=== PATIENT | female | born 1945 | race Caucasian/White ===

== ENCOUNTER 2018-05-30 03:10 | Inpatient (IN) | payer OTHER ==
[~2018-05-30] VITALS: Ht 162 cm; Wt 79.0 kg
[~2018-05-30 03:10] MED LIST: ASPIRIN EC81 M1 PO; BENAZEPRIL HCL20 MG PO; CALCIUM + VITA1 EAC1 PO; CELEBREX100 M1 PO; COLACE100 M1 PO; LEVO-T75 MCG PO; LIPITOR20 M2 PO; MULTIVITAMINS1 EAC9 PO; PAXIL20 M1 PO; SYSTANE 0.3-0.415 ML OU
--- NOTE | 2018-05-30 07:13 | Operative Report ---
Operative/Inv Procedure Report Surgery Date: 05/30/18 Name of Procedure: 1. L3, L4, L5 pars osteotomy for deformity correction 2. Total L3, L4, L5, partial S1 laminectomy 3. L3 4, L4 5, L5-S1 laminotomy, total facetectomies, foraminotomies, far lateral discectomies 4. L3 4, L4 5, L5-S1 transforaminal lumbar interbody fusion with Bruno tritanium interbody cage, autograft 5. Segmental posterior lateral lumbar arthrodesis L3 4, L4 5, L5-S1 with [place] Jaime pedicle screws and rods, autograft, iliac crest bone marrow aspirate 6. Right Iliac crest bone marrow aspirate 7. O arm neuro navigation Pre-Operative Diagnosis: L3/4, L4/5, L5/S1 spondylolisthesis, stenosis, scoliosis Post-Operative Diagnosis: same Estimated Blood Loss: 1350cc Surgeon/Heavy Duty Press Operator: Red HARRIS,Peyman Roger MD Anesthesia: general endotracheal tube Monitors: neurophysiologic monitoring IV Fluids: 3000cc replaced with crystalloid, 660cc cell saver, 500cc colloid Implants: Bruno tritanium interbody cages, jaime pedicle screws and rods Urine Output: 960cc via handy Drains: med HV Specimens: L3/4, L4/5, L5/S1 disc material Complications: none Condition: stable Operative Indication: 73 yo with intractable lumbar claudication despite comprehensive conservative tx with multilevel lumbar DDD, spondylolisthesis and high grade spinal stenosis from L3 to the sacrum who now presents for operative decompression and instrumented stabilization. Operative/Procedure Note Note: Patient was taken the operating room. After appropriate patient identification, neurophysiologic monitoring leads were placed and baseline recordings were obtained. The patient then underwent the smooth induction of general endotracheal anesthesia without incident. Following intubation monitoring was stable. A Handy catheter was sterilely inserted. DVT prophylaxis was utilized throughout the case. Patient was given 2 g of IV Kefzol Preoperative Prophylaxis and it was redosed at 4 hours. With All Tubes and Lines Secured, the Patient Was Carefully Turned to the Prone Position on the Fazal Frame Taking Care to Ensure That All Pressure Points Were Well-Padded. Monitoring Was Stable Following the Turn.The Low Back Was Widely Prepped and Draped Usual Sterile Fashion Using [place] Iodine Solution. A Vertical Midline Skin Incision Was Marked from approx L3 to the sacrum and Infiltrated with 10 ML of Local Anesthetic. Skin incision was made with a 10 blade knife. Dissection was carried down through subcutaneous tissue with the Bovie to the lumbodorsal fascia. The fascia was incised and a subperiosteal dissection of the lumbar paravertebral muscles was performed exposing the underlying spinous processes lamina and facets from L3 to S1 bilaterally and self-retaining retractors were placed beneath the muscle. A [place] 4 elevator was placed under the presumed L5 lamina and vernon on the L3 pars and an intraoperative lateral lumbar x-rays was obtained to confirm the correct level. With the correct level verified, we then proceeded to expose the transverse processes from L3 to L5 as well as the sacral alar bilaterally and they were decorticated with a high-speed drill. We then focused our attention to the decompression. The facet joints were noted to be markedly hypertrophic. A total laminectomy from L3 to S1 was completed using a combination of the bone scalpel, small straight and angled curettes and Kerrison rongeurs. Thickened ligamentum flavum was gently elevated and resected allowing excellent decompression of the thecal sac. Bilateral pars osteotomies were then performed at L3, L4, and L5 using combination the bone scalpel and a Kerrison rongeurs and total facetectomies were completed. All bone was saved and passed to the back table for subsequent arthrodesis. Pedicles were skeletonized at L3, L4, L5, and S1 bilaterally and the exiting and traversing roots were widely decompressed on both sides. We then focused our attention to the discectomies. Using a far lateral approach , discectomies were completed at L4 5 from the patient's left side and from the right at L3 4. The disc at L5/S1 was severely collapsed and so we deferred the interbody work until the screws were in position in order to distract the disc space and facilitate the interbody arthordesis at this level. The dural sac was gently mobilized to the midline, the underlying disc annulus was coagulated with a bipolar and incised in a rectangular fashion with an 11 blade knife and discectomies were completed with small straight and angled curettes pituitary rongeurs disc space rodney and rasps until all the cartilaginous endplates were removed at bothlevels. 10 mL of right iliac crest bone marrow aspirate was then taken via a Jamshidi needle through a separate stab incision at the right iliac crest and added to the morcellated autograft. We next focused our attention to the interbody arthrodesis. Beginning at L4 5, a 9 x 28 x 6 mm tritanium cage was also selected after appropriate trials and packed with morcellated autograft. Morcellated autograft was packed into the anterior disc space and the L4 5 cage was packed with autograft and then gently tamped into the interspace under direct visualization and countersunk by several millimeters and its position also confirmed and noted to be excellent. At L3 4, a 9 x 28 x 6 mm titanium cage was selected and packed with morcellated autograft. autograft were carefully packed into the anterior aspect of the L3 4 disc space followed by the cage was gently tamped into the interspace and countersunk by 2 mm and its final position confirmed and noted to be excellent. With cages in position, we then proceeded to the posterior lateral arthrodesis. The O arm reference arc was then fixed to the right iliac crest and an AP and lateral x-rays were obtained with the O arm followed by a spin. Reconstructions were completed and confirmed. We then used live navigation to place all of the posterolateral hardware. Prior to placing the pedicle screw instrumentation, all residual bone graft was moistened with iliac crest bone marrow aspirate was packed over the transverse processes from L3 to the sacral alar bilaterally. Entry points for [place] Jaime pedicle screws were selected using the O arm at the junction of the pars interarticularis transverse process and inferomedial aspect of the rostral facet. All screws were placed by piercing the bone with the drill, traversing the pedicle with a gearshift under the hole with a ball- tipped probe, and screw placed with power. We began at L3. 5.5 x 50 mm screw was placed bilaterally. At L4, 5.5 x 45 mm screws were placed bilaterally, at L5, 6.5 x 45 mm screws bilaterally, at S1, 6.5 x 40 mm screws placed bilaterally. With all screws were in position, they were stimulated with thresholds greater than 30 mA at all locations. With the screws in place, we then top loaded a 80mm hyperlordotic que on the right and gently distracted across the L5/S1 interspace. We then completed a thorough discectomy with disc space rodney and rasps to prepare the interspace and placed autograft in the anterior disc space followed by a 8 X 28 x 6 cage which was filled with autograft and tamped into the interspace and countersunk. With all the instrumentation in position, we then obtained a second spin of the O arm and completed the reconstructions to ensure good hardware positioning. All cages and screws were in excellent position. We top loaded a second 80 mm titanium rods and locking caps were placed. Screws were then finally tightened using antitorque device. Was copiously irrigated with bacitracin and sterile saline irrigation. Epidural bleeding was controlled using FloSeal, Surgifoam and cottonoid patties and points of muscle bleeding were controlled with the bipolar electrocautery. A medium GERMAIN drain was placed into the wound and secured to the skin with a 2-0 nylon suture. 1 g of vancomycin powder was gently used to cover the cut muscle and soft tissue surfaces in the wound and we then began closure. 10 mL of long- acting local anesthetic was placed in the paraspinal muscle. Deep muscle was reapproximated with interrupted 0 Vicryl suture. Subcutaneous tissue was closed in layers with interrupted oh and 2-0 Vicryl suture. The skin was closed with ivy. The wounds were cleaned and dried. Bacitracin and sterile occlusive dressings were placed. The reference arc was removed from the right iliac crest. That wound was irrigated, closed in layers in the subcutaneous tissue with Vicryl suture and ivy in the skin. It was cleaned and dried and a sterile occlusive dressing was placed. At the completion of the case, all sponge needle and injuring counts were correct at the completion of the procedure 3. Neurophysiologic monitoring was stable throughout the case. Patient was returned to the supine position, awakened extubated and taken to PACU in stable condition. He was noted to be moving all four extremities. Discharge Disposition: PACU
--- NOTE | 2018-05-30 13:53 | RADIOLOGY REPORT ---
EXAMINATION: XR LUMBAR SPINE CLINICAL INFORMATION: L3-L4, L4-L5, L5-S1 TLIF. COMPARISON: Lumbar spine films dated 02/17/2018. TECHNIQUE: Single lateral view of the lumbar spine. FINDINGS: A surgical marker is seen projected over the posterior elements of the L5 vertebral body and the L3 vertebral body. Severe degenerative disc disease and facet arthropathy is seen at L4-L5 and L5-S1, similar to prior exam. IMPRESSION: Surgical localization of the posterior elements of the L3 and L5 vertebral bodies.
--- NOTE | 2018-05-30 14:05 | Operative Report ---
Operative/Inv Procedure Report Surgery Date: 05/30/18 Name of Procedure: L5 3 91965 transforaminal lumbar interbody fusion using [place] titanium intervertebral biomechanical device using [place] Sirota pedicle screws L3 4 and 5 and S1 posterior lateral fusion L3 4 5 1 posterior lateral segmental instrumentation L3 L4 L5 posterior osteotomies for spinal listhesis correction bilateral facetectomies bilateral neural decompression of L3-L4 L5-S1 nerve roots through [place] laminectomies Use of autograft use of Stealth navigation Pre-Operative Diagnosis: Spondylolisthesis lateral recess stenosis herniated nucleus pulposus Central stenosis Coronal and sagittal plane deformity Post-Operative Diagnosis: Same Estimated Blood Loss: 1350 Surgeon/Laundry Presser: Peyman Moon MD,Desiree Lyle Anesthesia: general endotracheal tube Operative/Procedure Note Note: After the successful administration of general endotracheal anesthesia all lines tubes and monitors were placed by anesthesia team the patient positioned prone on the Fazal table pressure points padded we palpated the spinous process of L3 through S1 patient was prepped and draped in usual standard fashion 10 mL of lidocaine with epinephrine was infiltrated in subcutaneous tissues were 10 was used to incise the skin this was taken down with Bovie cautery to thoracolumbar fascia which was divided and a subperiosteal dissection was carried out exposing spinous process lamina of L3 4 5 and S1 care was taken not to denude to 3 joint space we took x-rays to confirm the levels after levels confirmed we denuded the joints at 5145 and 3 for the transverse processes of L3 4 5 and L5-S1 were identified. After retractors were inserted, we used was bone coated with spinous processes of L3 4 5 and S1 the bone taken to back table morselized we then used the bone scalpel to make posterior osteotomies at L3-L4 and L5 removing the posterior elements of these bodies with the midline structures was taken for morselized autograft we then made cuts with the bone scalpel in the superior facets of L4-L5 and S1 putting wide axis and bilateral posterior osteotomies decompressing the lateral recesses exposing the L3-L4 L5-S1 nerve roots in their entirety. Through satisfied with the neural decompression we retracted thecal sac medially and placed The interbody's at L3 4 45, 34 from the right-hand side fand 4/5 from the left-hand side L3 4 side we cut the bulging disc was sent off for specimen we into the disc space the #11 blade performed a total discectomy accommodation of pituitaries rodney Webb curettes and rongeurs replaced 9 x 26x6 lordotic 11 wide spacers at both the 3/4 and4/5 levels. Motors and sensors were stable. We then turned attention to the 51 disc space and left-hand side the disc was very collapsed and could not interact a straight leg we then decided to proceed with this interbody fixation after we placed a pedicle screws providing distraction there were placed the case pinned in the right iliac crest, and obtained an O arm spin. On the [employer] [employer] workstation with plantar screw to points and trajectories. We used a high-speed drill and the navigated lanky probe and navigated taps [address] our screw entry points. At L3 placed 55 by 50s at L4 was 5 5 x 45, L5-6 5 x 45 and S1 placed 6.5 by 40s all screws stimulated above threshold. We then provided in-line distraction on the right-hand side across the 51we entered the 5 onthe left-hand side and placed a 8 x 28 x 6 spacer. We then put arm in for confirmatory spin all hardware in excellent position we backed out the left S1 screw to make sure was adequately bicortical we then placed to precontoured a millimeter hyperlordotic rods secured in place with set screws and tightened with torque limiting tractor driver teamster. We then irrigated with bacitracin irrigation obtained hemostasis space the neural elements patient is no further compression the transverse process were decorticated and packed with morselized autograft. There separate stab incision placed a Hemovac the wound was then dusted with vancomycin powder and closed in layers using 0 device the muscle and fascia 2-0 Vicryl for the dermis and skin was closed ivy dry sterile dressing was applied the purchase pins removed irrigated and closed in layers using 2-0 Vicryl and ivy. All needle counts sponge instrument correct the patient to recovery in stable condition.
--- NOTE | 2018-05-30 14:47 | RADIOLOGY REPORT ---
EXAMINATION: CR LUMBOSACRAL SPINE/INTRAOPERATIVE FLUOROSCOPY CLINICAL INDICATION: L3-L4, L4-L5, L5-S1 TLIF. COMPARISON: Lumbar spine films from earlier today. TECHNIQUE/FINDINGS: Fluoroscopic o - arm equipment was dedicated to the operating room for the performance of an intraoperative procedure. 2 spins were acquired and are archived in PACS. Please refer to operative notes for procedural detail. FLUOROSCOPY TIME: 7.69 seconds. IMPRESSION: Administrative dictation for intraoperative fluoroscopy and image archiving in PACS. Please refer to operative notes for details.
[2018-05-30 16:00] VITALS: BP 102/60
--- NOTE | 2018-05-30 16:01 | PN- Neurosurgical ---
Subjective Subjective: Postop check: Patient sleeping but arousable. Moderate back pain. Some relief from the Dilaudid EXECUTIVE ADMIN. No neurologic symptoms of the lower extremities. No other complaints. Objective Vital Signs and I&Os Intake & Output 05/30 1600 05/30 0805/30 0000 05/29 1600 05/29 0805/29 0000 Intake Total Output Total Balance Patient 176 lb Weight Vital signs stable, afebrile, heart rate 88, blood pressure 100/65 Physical Exam: Well-developed well-nourished no apparent distress. Sleepy but arousable HEENT: Atraumatic, extraocular motion intact Neck: Supple, no lymphadenopathy Respiratory: No respiratory distress Back: Dressing clean dry and intact, Hemovac drain in place, scant amount of bright red blood noted, 135 cc was drained out by the nursing staff while in the recovery room bilateral lower extremities are neurovascularly intact with sensation and motor grossly intact, No noted deficits Extremities: No edema, no calf pain Neuro: Alert and oriented x3 Psych: Mood affect normal, normal memory normal judgment. Skin: Warm and dry, no rash on exposed skin Assessment/Plan Assessment/Plan POD #0 sp L3 4, L4 5, L5-S1 transforaminal lumbar interbody fusion secondary to L3/4, L4/5, L5/S1 spondylolisthesis, stenosis, scoliosis Dilaudid EXECUTIVE ADMIN Continue Hemovac drain to self suction. Antibiotics until the drain is out, Ancef IV every 8 hours Out of bed with assistance, back brace on when out of bed. Continue Silva IV fluids Neurochecks As needed antiemetics. As needed Toradol Regular home meds Heparin for DVT prophylaxis A LPS for DVT prophylaxis Core Measures Venous Thromboembolism VTE Risk Factors Surgery No Mechanical VTE Prophylaxis d/t N/A MechProphylax Ordered No VTE Pharm Prophylaxis d/t NA PharmProphylax ordered
[2018-05-30 18:00] VITALS: BP 90/60
[2018-05-30 20:30] VITALS: BP 98/58
[2018-05-30 20:34] VITALS: BP 98/58
[2018-05-30 22:00] VITALS: BP 102/68
[2018-05-30 22:13] VITALS: BP 102/68
[2018-05-31] VITALS (10 sets, daily range): BP systolic 96–118; BP diastolic 28–68
[2018-05-31 07:39] LABS: ABSOLUTE BASOPHIL COUNT 0 /CUMM (0.0-0.2); ABSOLUTE EOSINOPHIL COUNT 0.2 /CUMM (0.0-0.7); ABSOLUTE GRANULOCYTE CT 7.8 /CUMM (1.4-6.5); ABSOLUTE LYMPH COUNT 0.7 /CUMM (1.2-3.4); ABSOLUTE MONOCYTE COUNT 0.6 /CUMM (0.10-0.60); BASOPHIL % 0.3 % (0.0-2.0); EOSINOPHIL % 1.7 % (0-5); GRANULOCYTE % 83.6 % (42.2-75.2); HEMATOCRIT 29.6 % (37-47); MEAN CORPUSCULAR HGB 29.4 PG (27.0-31.0); MEAN CORPUSCULAR HGB CONC 32.9 G/DL (33.0-37.0); MEAN CORPUSCULAR VOLUME 89.2 FL (81.0-99.0); PLATELET COUNT 177 /CUMM (130-400); RBC DISTRIBUTION WIDTH 13.9 % (11.5-14.5); RED BLOOD CELL CT 3.32 /CUMM (4.20-5.40); WHITE BLOOD CELL COUNT 9.3 /CUMM (4.8-10.8)
--- NOTE | 2018-05-31 08:51 | PN- Neurosurgical ---
Subjective Subjective: Pt doing well. A bit groggy from PLATE EMBOSSER this am. Objective Vital Signs and I&Os Vital Signs Date Time Temp Pulse Resp B/P B/P Pulse O2 O2 Flow FiO2 Mean Ox Delivery Rate 05/31 0634 98.4 83 20 96/50 96 Nasal 2.0L Cannula / 0600 98.4 83 20 96/50 / 0415 98.5 78 18 100/60 96 Nasal 2.0L Cannula 05/31 0400 98.5 78 18 100/60 / 0221 98.6 85 18 110/60 96 Nasal 2.0L Cannula 05/31 0200 98.6 85 18 110/60 07/ 0000 Nasal 1.0L Cannula / 0000 98.1 78 18 110/28 07/ 0000 98.1 78 18 110/58 94 Nasal 1.0L Cannula 05/30 2213 98.3 79 20 102/68 96 Nasal 1.0L Cannula 05/30 2200 98.3 79 20 102/68 / 2117 Nasal 2.0L Cannula 05/30 2034 97.6 75 20 98/58 97 Nasal 3.0L Cannula / 2030 97.6 75 20 98/58 07/03 1800 98.0 80 16 90/60 07/03 1800 98.0 80 16 90/60 95 Nasal 3.0L Cannula / 1600 98.0 78 15 102/60 07/03 1600 93 Nasal 3.0L Cannula / 1600 98.0 78 15 102/60 93 Nasal 3.0L Cannula Intake & Output 05/31 1600 / 0800 / 0000 03 1600 05/30 0800 05/30 0000 Intake Total 1000 1360 4150 Output Total 596 222 4289 Balance 113 373 0949 Intake, Blood 650 Product Intake, IV 425 135 0646 Intake, Oral 480 720 Number 0 0 Bowel Movements Output, 150 230 135 Drainage Output, Other 1260 Output, Urine 240 191 9851 Patient 79 kg Weight Weight Reported by Patient Measurement Method Physical Exam: AF, VSS awake and alert, conversive and appropriate eating breakfast neuro exam is normal incision intact, flat pain reasonably controlled handy, PLATE EMBOSSER in place using IS to 2.5L this am HV with 150cc last shift serosanguinous Current Medications: Current Medications Sig/Ren Start time Last Medication Dose Route Stop Time Status Admin Acetaminophen 650 MG Q4P PRN 05/30 1500 AC PO Albumin Human 25 GM .STK-MED ONE 05/30 0930 DC IV 05/30 0931 Bisacodyl 10 MG DAILY NEEDED PRN 05/30 1500 AC CA Cefazolin Sodium 2,000 MG Q8H 05/30 2000 AC 05/31 IV 06/02 0800 0410 Cefazolin Sodium 2,000 MG ONCE 05/30 0000 DC IV 05/30 2359 Diazepam 5 MG Q8P PRN 05/30 1515 AC PO Docusate Sodium 100 MG TID 05/30 2100 AC 05/31 PO 0838 Heparin Sodium 5,000 UNIT Q8 05/31 0600 AC 05/31 (Porcine) SC 0553 Hydromorphone HCl 2 MG Q4-6 PRN PRN 05/31 0800 AC PO Hydromorphone HCl 2 MG .STK-MED ONE 05/30 1439 DC IM 05/30 1440 Hydromorphone HCl 50 MG Q24H PRN 05/30 1430 AC Sodium Chloride 45 ML IV Hydromorphone HCl 2 MG .STK-MED ONE 05/30 1425 DC IM 05/30 1426 Ketorolac 15 MG Q6P PRN 05/30 1500 AC Tromethamine IV 06/04 1500 Ondansetron HCl 4 MG Q6P PRN 05/30 1500 AC IV Oxycodone/ 1 TAB Q4P PRN 05/31 0800 AC Acetaminophen PO Oxycodone/ 2 TAB Q4P PRN 05/31 0800 AC Acetaminophen PO Remifentanil 2 MG .STK-MED ONE 05/30 1208 DC IV 05/30 1209 Senna 374 MG AT BEDTIME NEED.. 05/30 1500 AC PO Sodium Chloride 1,000 ML CONTINOUS INFUSION 05/30 1445 AC 05/31 IV 06/01 0314 0413 Trimethobenzamide HCl 200 MG Q6P PRN 05/30 1500 AC IM Zolpidem Tartrate 2.5 MG AT BEDTIME 05/30 2100 AC 05/30 PO 2246 Results Last 48 Hours of Labs: Laboratory Tests 05/31 0656 Hematology CBC w Diff Pending WBC Pending RBC Pending Hgb Pending Hct Pending MCV Pending MCH Pending MCHC Pending RDW Pending Plt Count Pending MPV Pending Gran % Pending Lymphocytes % Pending Monocytes % Pending Eosinophils % Pending Basophils % Pending Absolute Granulocytes Pending Absolute Lymphocytes Pending Absolute Monocytes Pending Absolute Eosinophils Pending Absolute Basophils Pending Assessment/Plan Assessment/Plan Pt POD1 s/p 3 level TLIF L3-S1 and doing well. Neurologically intact. Plan: -OOB with brace -PT -dc handy, dc PLATE EMBOSSER -toradol 15mg q8 atc, percocet prn, valium prn -use IS -cont HV, abx until output less than 50cc per shift -encourage IS use regularly -DVT prophylaxis Core Measures Venous Thromboembolism VTE Risk Factors Surgery No Mechanical VTE Prophylaxis d/t N/A MechProphylax Ordered No VTE Pharm Prophylaxis d/t NA PharmProphylax ordered Attending MD Review Statement Attending Statement Attending MD Statement: examined this patient, discuss w/resident/PA/COURTESY CLERK, discussed w/nursing
[2018-06-01] VITALS (7 sets, daily range): BP systolic 86–126; BP diastolic 48–70
--- NOTE | 2018-06-01 07:40 | PN- Neurosurgical ---
Subjective Subjective: No acute overnight events reported. Pt states she is not sleeping well, acknowledges pain at surgical site. Denies chest pain, shortness of breath and difficulty breathing. Denies nausea and vomitting. Has been voiding. Objective Vital Signs and I&Os Vital Signs Date Time Temp Pulse Resp B/P B/P Pulse O2 O2 Flow FiO2 Mean Ox Delivery Rate 06/01 0611 98.7 75 16 126/70 94 Nasal 1.0L Cannula 06/01 0000 98.1 68 18 102/48 92 05/31 2243 98.3 67 18 100/56 90 Room Air 05/31 2000 98.0 66 18 108/56 92 Room Air 05/31 1600 96 Nasal 2.0L Cannula 05/31 1340 98.4 79 16 118/68 95 Nasal 2.0L Cannula 05/31 0800 Nasal 2.0L Cannula Intake & Output 06/01 0800 07/ 0000 04 1600 05/31 0800 05/31 0000 05/30 1600 Intake Total 771 16 6104 1000 1360 4150 Output Total 1800 2200 105 294 458 4034 Balance -1290 -2150 1815 620 179 2349 Intake, Blood 650 Product Intake, IV 30 50 320 000 337 7210 Intake, Oral 480 1600 480 720 Number 0 0 0 Bowel Movements Output, 100 100 105 150 230 135 Drainage Output, Other 1260 Output, Urine 1700 2100 709 577 6134 Patient 174 lb Weight Weight Reported by Patient Measurement Method Physical Exam: General: Alert and oriented x3, no acute distress, fatigued Cardiac: RRR. s1s2 Pulm: CTA bilaterally Abd: Soft, non-distended Ext: Neurovascularly intact, bilateral calves soft and non-tender Motor: BLE: 5/5 in plantar and dorsiflexion, no sensory deficits reported Surgical site: Lumbar, dressing dry and intact, no surrounding hematoma or erythema. HV drain holding suction, sanguinous output. 100 cc reported overnight. Assessment/Plan Assessment/Plan This is a 73 year old female, POD 2 s/p L3-S1 fusion. -Continue drain to suction today, continue prophylactic abx while drain in place -Continue atc toradol -Percocet q4-6 prn -IS encouraged, wean o2 to room air -OOB encouraged -continue DVT ppx -Anticipate dc to str when drain removed, will discuss bed placement with case management Will discuss poc with Dr. Moon Core Measures Venous Thromboembolism VTE Risk Factors Surgery No Mechanical VTE Prophylaxis d/t N/A MechProphylax Ordered No VTE Pharm Prophylaxis d/t NA PharmProphylax ordered
--- NOTE | 2018-06-01 18:42 | PN- Neurosurgical ---
Subjective Subjective: Pt doing well. Pain reasonably controlled and able to ambulate around unit with Pt today. Objective Vital Signs and I&Os Vital Signs Date Time Temp Pulse Resp B/P B/P Pulse O2 O2 Flow FiO2 Mean Ox Delivery Rate 06/01 1537 104/60 06/01 1431 86/58 / 1404 97.6 68 18 90/64 94 Room Air 06/01 1145 Nasal 1.0L Cannula 06/01 1142 Nasal 1.0L Cannula 06/01 1009 97.9 69 18 90/64 94 Room Air 06/01 1000 95 Room Air 06/01 0852 Nasal 1.0L Cannula 06/01 0800 94 Nasal 1.0L Cannula 06/01 0611 98.7 75 16 126/70 94 Nasal 1.0L Cannula 06/01 0000 98.1 68 18 102/48 92 / 2243 98.3 67 18 100/56 90 Room Air 05/31 2000 98.0 66 18 108/56 92 Room Air Intake & Output 06/01 1600 06/01 0800 06/01 0000 05/31 1600 05/31 0800 05/31 0000 Intake Total 870 869 99 2792 1000 5510 Output Total 900 1800 2200 095 887 4525 Balance -30 -1290 -2150 3799 635 3926 Intake, Blood 650 Product Intake, IV 30 30 50 289 083 9861 Intake, Oral 711 481 6392 480 720 Number 0 0 0 Bowel Movements Output, 50 100 100 105 150 365 Drainage Output, Other 1260 Output, Urine 850 1700 2100 350 2000 Patient 79 kg Weight Weight Reported by Patient Measurement Method Physical Exam: AF, VSS sitting in a chair using IS to 2.5L HV with 50cc last shift neuro exam is normal bilat LE, no edema incision c,d,i flat ambulating, ortega po well voiding on own Current Medications: Current Medications Sig/Ren Start time Last Medication Dose Route Stop Time Status Admin Acetaminophen 650 MG Q4P PRN 05/30 1500 AC PO Bisacodyl 10 MG DAILY NEEDED PRN 05/30 1500 AC MN Cefazolin Sodium 2,000 MG Q8H 05/30 2000 AC 06/01 IV 06/02 0800 1159 Diazepam 5 MG Q8P PRN 05/30 1515 AC PO Docusate Sodium 100 MG TID 05/30 2100 AC 06/01 PO 1405 Heparin Sodium 5,000 UNIT Q8 05/31 0600 AC 06/01 (Porcine) SC 1405 Ketorolac 15 MG Q8 05/31 1400 AC 06/01 Tromethamine IV 06/03 1359 1405 Ondansetron HCl 4 MG Q6P PRN 05/30 1500 AC IV Oxycodone/ 1 TAB Q4P PRN 05/31 0800 AC Acetaminophen PO Oxycodone/ 2 TAB Q4P PRN 05/31 0800 AC 06/01 Acetaminophen PO 1622 Senna 374 MG AT BEDTIME NEED.. 05/30 1500 AC PO Trimethobenzamide HCl 200 MG Q6P PRN 05/30 1500 AC IM Zolpidem Tartrate 2.5 MG AT BEDTIME 05/30 2100 AC 05/31 PO 2112 Results Last 48 Hours of Labs: Laboratory Tests 05/31 656 Hematology CBC w Diff MAN DIFF ORDERED WBC (4.8 - 10.8 /CUMM) 9.3 RBC (4.20 - 5.40 /CUMM) 3.32 L Hgb (12.0 - 16.0 G/DL) 9.8 L Hct (37 - 47 %) 29.6 L MCV (81.0 - 99.0 FL) 89.2 MCH (27.0 - 31.0 PG) 29.4 MCHC (33.0 - 37.0 G/DL) 32.9 L RDW (11.5 - 14.5 %) 13.9 Plt Count (130 - 400 /CUMM) 177 MPV (7.4 - 10.4 FL) 8.0 Gran % (42.2 - 75.2 %) 83.6 H Lymphocytes % (20.5 - 51.1 %) 7.5 L Monocytes % (1.7 - 9.3 %) 6.9 Eosinophils % (0 - 5 %) 1.7 Basophils % (0.0 - 2.0 %) 0.3 Absolute Granulocytes (1.4 - 6.5 /CUMM) 7.8 H Absolute Lymphocytes (1.2 - 3.4 /CUMM) 0.7 L Absolute Monocytes (0.10 - 0.60 /CUMM) 0.6 Absolute Eosinophils (0.0 - 0.7 /CUMM) 0.2 Absolute Basophils (0.0 - 0.2 /CUMM) 0 Platelet Estimate (ADEQUATE) VERIFIED BY SMEAR Basophilic Stippling 1+ Assessment/Plan Assessment/Plan Pt POD2 s/p L3-S1 decompression and fusion and doing well. Plan: -dc drain in am if output remains low -ok for STR tomorrow -needs fu 2wks for ivy, wound check -dc instructions discussed with pt in detail tonight -needs pain meds for dc -brace when oob Core Measures Venous Thromboembolism VTE Risk Factors Surgery No Mechanical VTE Prophylaxis d/t N/A MechProphylax Ordered No VTE Pharm Prophylaxis d/t NA PharmProphylax ordered
[2018-06-02] VITALS: BP 108/68
[2018-06-02 04:00] VITALS: BP 92/58
[2018-06-02] MEDS ORDERED: VALIUM5 M2 PO (07:25)
[2018-06-02] MEDS ORDERED: PERCOCET 5-3251 EACH PO (07:25)
--- NOTE | 2018-06-02 07:45 | Patient Discharge Instructions ---
Discharge Instructions General Discharge Information You were seen/treated for: Back pain related to L3-S1 spondylolisthesis, stenosis, and scoliosis You had these procedures: L3-S1 Laminectomy with TLIF Watch for these problems: Increasing pain despite the use of pain medication Increasing redness, warmth, or swelling of low back Drainage of any type from incision Inability to bear weight on bilateral legs Worsening weakness/tingling to bilateral legs Inability to urinate or move bowels Fever greater than 101.5 Call Surgeon to remove: [place] (2 weeks post op) Do not soak the wound: Yes No bath, but you may shower: Yes Other wound care: Please keep wound clean and dry Do not soak No ointments or lotions on or near incision at any time, no exceptions Special Instructions: Brace at all times when out of bed Okay to restart Aspirin, 81 mg, in two weeks from date of surgery. Do not take any ibuprofen or celebrex, or any other anti-inflammatory medication for a minimum of 3 months post op or until otherwise indicated by Dr. Moon. Diet Continue normal diet: Yes Recommended Diet: Regular Activity Full Activity/No Limits: No Activity Self Limited: Yes Pounds, do NOT lift more than: 5 Additional ACTIVITY Info: Brace at all times when out of bed Acute Coronary Syndrome Inclusion Criteria At DC or during hospital stay patient has or had the following: ACS DIAGNOSIS No Discharge Core Measures Meds if any: Prescribed or Continued at Discharge Meds if any: NOT Prescribed or Continued at Discharge Congestive Heart Failure Inclusion Criteria At DC or during hospital stay patient has or had the following: CHF DIAGNOSIS No Discharge Core Measures Meds if any: Prescribed or Continued at Discharge Meds if any: NOT Prescribed or Continued at Discharge Cerebrovascular accident Inclusion Criteria At DC or during hospital stay patient has or had the following: CVA/TIA Diagnosis No Discharge Core Measures Meds if any: Prescribed or Continued at Discharge Meds if any: NOT Prescribed or Continued at Discharge Venous thromboembolism Inclusion Criteria VTE Diagnosis No VTE Type NONE VTE Confirmed by (Test) NONE Discharge Core Measures - Per Current guidelines, there needs to be overlap - treatment for the first 5 days of Warfarin therapy. - If discharged on Warfarin prior to 5 days of - overlap therapy, the patient will need to be - assessed for post discharge needs including - *Post discharge parental anticoagulation - *Warfarin and/or parental anticoagulation education - *Follow up date to check INR post discharge At least 5 days overlap therapy as Inpatient No Meds if any: Prescribed or Continued at Discharge Note: Overlap Therapy is Warfarin and Anticoagulant Meds if any: NOT Prescribed or Continued at Discharge
[2018-06-02 07:55] VITALS: BP 104/64
--- NOTE | 2018-06-02 08:01 | Surgical Discharge Summary ---
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 Home Who Do You Live With? Spouse Services at Home: None What is Your Primary Language? Israeli Review of Systems: See H&P Hospital Course Course Attending Physician: Red HARRIS,Desiree Lyle Primary Care Physician: Ted Lam MD Hospital Course: Rabia was admitted to the hospital on 05/30/2018 after undergoing a TLIF at levels L3-S1. She tolerated the procedure well and was transferred to a general surgical floor. Her diet was advanced and tolerated. She was evaluated and treated by physical therapy. At the time of hospital discharge, her vital signs were stable and within normal limits, her neurovascular status was intact, and her pain was controlled with the use of oral pain medications. Allergies: Coded Allergies: No Known Allergies (05/24/18) Disposition Summary Disposition Principal Diagnosis: Spondylolisthesis, stenosis and scoliosis of L3-S1 Additional Diagnosis: None Discharge Disposition: SNF Discharge Instructions General Discharge Information Code Status: Full Code Patient's Diet: Regular, advance as tolerated Patient's Activity: Out of bed with brace, weightbear as tolerated Follow-Up Instructions/Appts: Follow up with Dr. Moon in two weeks from date of surgery for staple removal Medications at Discharge Discharge Medications: Stop taking the following medications: Celecoxib (Celebrex) 100 MG CAPSULE ORAL TWICE DAILY Aspirin (Ecotrin*) 81 MG TABLET.DR MAUREEN DIAZ Continue taking these medications: Levothyroxine Sodium (Levo-T) 75 MCG TABLET 1 Tablet ORAL DAILY Atorvastatin Calcium (Lipitor) 20 MG TABLET 1 Tablet ORAL DAILY Benazepril HCl (Benazepril HCl) 20 MG TABLET 1 Tablet ORAL DAILY Paroxetine HCl (Paxil) 20 MG TABLET 1 Tablet ORAL TWICE DAILY Multiple Vitamin (Multivitamins) 1 EACH TABLET 1 Tablet ORAL DAILY Propylene Glycol/Peg 400 (Systane 0.3-0.4% Eye Drops) (Unknown Strength) DROPS Unknown Dose Both Eyes As Directed as needed for BOTH EYES Calcium Carbonate/Vitamin D3 (Calcium + Vitamin D Tablet) (Unknown Strength) TABLET Unknown Dose ORAL DAILY Docusate Sodium (Colace) 100 MG CAPSULE 1 Capsule ORAL TWICE DAILY Start taking the following new medications: Oxycodone HCl/Acetaminophen (Percocet 5-325 MG Tablet) 5 MG-325 MG TABLET 1-2 Tablet ORAL EVERY 4-6 HOURS as needed for PAIN Qty = 36 No Refills Diazepam (Valium) 5 MG TABLET 1 Tablet ORAL THREE TIMES A DAY NEEDED as needed for SPASM Qty = 24 No Refills
--- NOTE | 2018-06-02 08:52 | PN- Neurosurgical ---
Subjective Subjective: Pt reports that she slept well overnight. Feels well today, pain controlled. No c/o chest pain, shortness of breath and difficulty breathing. No nausea or vomitting. No bm, but is voiding without difficulty and has passed flatus. Has been oob, ambulated. Anticipates dc to str today, Religious. Objective Vital Signs and I&Os Vital Signs Date Time Temp Pulse Resp B/P B/P Pulse O2 O2 Flow FiO2 Mean Ox Delivery Rate 06/02 0755 98.0 79 20 104/64 91 Room Air 06/02 0400 97.8 63 20 92/58 92 Room Air / 0000 98.3 73 18 108/68 94 Room Air / 2146 98.4 75 92 110/70 07/05 1537 104/60 07/05 1431 86/58 07/05 1404 97.6 68 18 90/64 94 Room Air / 1145 Nasal 1.0L Cannula 06/01 1142 Nasal 1.0L Cannula 06/01 1009 97.9 69 18 90/64 94 Room Air /05 1000 95 Room Air 06/01 0852 Nasal 1.0L Cannula Intake & Output 06/02 1600 07/06 0800 07/06 0000 07/05 1600 07/05 0800 07/05 0000 Intake Total 120 240 870 510 50 Output Total 1040 90 900 1800 2200 Balance -920 -2150 Intake, IV 30 30 50 Intake, Oral 120 240 840 480 Output, 40 90 50 100 100 Drainage Output, Urine 5253 111 1943 2100 Physical Exam: General: Alert and oriented x3, no acute distress Cards: RRR, s1s2 Pulm: C T A bialterally, non-labored respiratory effort Abd: Non-tender, bloated, +bs Extremities: Moves all extremities, distal sensation grossly intact. Skin warm and well perfused. Bilateral calves soft and non-tender. Motor: 5/5 in plantar and dorsiflexion of bilateral lower extremities. 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 Reported numbness to fingers 4 & 5 on left hand, no motor deficit on exam. No swelling, skin warm, cap refill brisk. Surgical site: Lumbar. Drain with 40 cc overnight. Holding suction, dc'd this am. Dressing changed. Wound clean and dry. Skin edges well approximated with ivy, no surrounding erythema or swelling. Assessment/Plan Assessment/Plan This is a 73 year old female, POD 3, s/p L3-S1 TLIF -Daily dry dressing changes -Continue current pain regimen -Dulcolax suppository today if no bm this am -OOB, wbat, brace when ambulating -Continue hep sub q and alps for dvt ppx -Can dc abx now that drain out -DC to str today pending bm POC discussed with DR. Moon Core Measures Venous Thromboembolism VTE Risk Factors Surgery No Mechanical VTE Prophylaxis d/t N/A MechProphylax Ordered No VTE Pharm Prophylaxis d/t NA PharmProphylax ordered
[2018-06-02 13:41] VITALS: BP 106/66
[2018-06-02 14:53] VITALS: BP 106/66
== END 2018-06-02 18:25 | DRG 460 ==
LOC: 2NB 03:10 → SDA 03:10 → ENRESERV 14:00 → ENTRNSPT 15:44 → EDTRNSPT 15:55 → EDTRNSPTSTS 15:55 → 2NB 16:07 → CMPTRNSPT 16:13 → 2NB 06-02 18:25
PROVIDERS: Physician Assistant Surgical
PROC: 0SB20ZZ Excision of Lumbar Vertebral Disc, Open Approach (ICD-10-PCS; principal; 2018-05-30)
PROC: 4A11X4G Monitoring of Peripheral Nervous Electrical Activity, Intraoperative, External Approach (ICD-10-PCS; principal; 2018-05-30)
PROC: 0SG30AJ Fusion of Lumbosacral Joint with Interbody Fusion Device, Posterior Approach, Anterior Column, Open Approach (ICD-10-PCS; principal; 2018-05-30)
PROC: 07DR3ZX Extraction of Iliac Bone Marrow, Percutaneous Approach, Diagnostic (ICD-10-PCS; principal; 2018-05-30)
PROC: 00NY0ZZ Release Lumbar Spinal Cord, Open Approach (ICD-10-PCS; principal; 2018-05-30)
PROC: 0SB40ZZ Excision of Lumbosacral Disc, Open Approach (ICD-10-PCS; principal; 2018-05-30)
PROC: 0SG10AJ Fusion of 2 or more Lumbar Vertebral Joints with Interbody Fusion Device, Posterior Approach, Anterior Column, Open Approach (ICD-10-PCS; principal; 2018-05-30)
DX: M48.062 Spinal stenosis, lumbar region with neurogenic claudication (principal); I10 Essential (primary) hypertension; E78.5 Hyperlipidemia, unspecified; M41.9 Scoliosis, unspecified; M43.16 Spondylolisthesis, lumbar region; Z90.49 Acquired absence of other specified parts of digestive tract; E03.9 Hypothyroidism, unspecified
CPT/HCPCS: 2NBP; 36415; 36592; 72020; 72100; 87086; 97116-GO; 97161-GP; 97530-GO; C9290; J0131; J0690; J1170; J1644; J2405; J3250; J3370; J3490; P9041